=== PATIENT | female | born 1935 | race Caucasian/White ===

== ENCOUNTER 2016-07-27 08:28 | Inpatient (IN) | payer OTHER ==
[~2016-07-27] VITALS: Ht 152.4 cm; Wt 63.5 kg
[~2016-07-27 08:28] MED LIST: ARTHROTEC 751 TABLET PO; CALCIUM 600 MG1 EACH PO; CRESTOR20 MG PO; DAILY VALUE1 EACH PO; DITROPAN5 MG PO; ENDOCET 5-3251 EACH PO; FERROUS SULFAT325 MG PO; FIBER THERAPY0.52 GM PO; HYDROCHLOROTH12.5 M3 PO; IRON325 M1 PO; LOPRESSOR25 MG PO; LOSARTAN POTASS50 MG PO; LOVENOX40 MG/0.4 SC; MECLIZINE HCL25 MG PO; METAXALONE800 MG PO; MICARDIS40 MG PO; MICARDIS80 MG PO; MICROZIDE12.5 M1 PO; NORVASC5 MG PO; OMEPRAZOLE20 MG PO; SENNA-TIME S T1 EACH PO; STOOL SOFTENER100 M1 PO; SUPER B-50 COM1 EACH PO; TYLENOL EXTRA500 MG PO; TYLENOL REGULA325 MG PO; Tums,OsCal PO; ULTRAM50 MG PO; VERAPAMIL HCL240 MG PO; VITAMIN D1000 INTUN PO
[2016-08-17] MEDS ORDERED: VOLTAREN75 MG PO (08:00)
[2016-08-17 08:06] VITALS: BP 167/63
[2016-08-17 14:03] VITALS: BP 143/65
[2016-08-17 15:56] VITALS: BP 164/74
[2016-08-17 19:44] VITALS: BP 136/62
[2016-08-17 23:38] VITALS: BP 130/60
[2016-08-18 03:38] VITALS: BP 157/66
[2016-08-18 06:27] LABS: HEMATOCRIT 24.9 % (36.0-46.0); MCV 92.6 FL (83-99)
[2016-08-18 06:47] LABS: ANION GAP 7 MEQ/L (2-14); CHLORIDE 97 MEQ/L (99-109); GFR ESTIMATE (CALCULATED) 57 mL/min/; GLUCOSE 97 mg/dL (70-99); SAMPLE HEMOLYSIS CHECK 0; SAMPLE ICTERIC CHECK 0; SAMPLE LIPEMIA CHECK 0; SODIUM 130 MEQ/L (136-147); UREA NITROGEN (BUN) 14 mg/dL (9-23)
[2016-08-18 08:16] VITALS: BP 147/67
[2016-08-18 17:28] VITALS: BP 137/64
[2016-08-18 20:10] VITALS: BP 178/73
[2016-08-18 23:19] VITALS: BP 162/72
[2016-08-19 06:24] LABS: HEMATOCRIT 28.4 % (36.0-46.0); MCV 91.3 FL (83-99)
[2016-08-19 08:20] VITALS: BP 166/67
[2016-08-19] MEDS ORDERED: SENNA PLUS TAB1 EACH PO (09:24)
[2016-08-19] MEDS ORDERED: OXYCODONE HCL5 MG PO (09:25)
[2016-08-19] MEDS ORDERED: XARELTO10 MG PO (09:25)
== END 2016-08-19 18:38 | disposition home or self-care (01) | DRG 470 ==
LOC: 2SOUTH 08:28 → 3EAST 08-17 13:53 → 2SOUTH 08-17 16:03 → 3EAST 08-19 18:38
PROVIDERS: Orthopaedic Surgery
PROC: 0SRD0J9 Replacement of Left Knee Joint with Synthetic Substitute, Cemented, Open Approach (ICD-10-PCS; principal; 2016-08-17)
DX: M17.12 Unilateral primary osteoarthritis, left knee (principal); M25.562 Pain in left knee; Z88.6 Allergy status to analgesic agent; Z88.8 Allergy status to other drugs, medicaments and biological substances
CPT/HCPCS: 80048; 85014; 85018; 86900; 86901; C1713; J0131; J0690; J1170; J1885; J2250; J7050; J7120; S0020